=== PATIENT | male | born 2005 | race Caucasian/White ===

== ENCOUNTER 2024-01-18 09:00 | Outpatient (REF) | payer OTHER, SELFPAY ==
--- NOTE | ~2024-01-18 | US_ITS ---
EXAMINATION: US SCROTUM CLINICAL INFORMATION: Left testicular pain x1 week. Left testicular pain for one week, sports mild rugby injury. COMPARISON: None available. TECHNIQUE: A sonogram of the scrotum was performed assessing jj-scale appearance and color Doppler flow. Spectral Doppler analysis of the arterial and venous flow were performed in the testes bilaterally. FINDINGS: RIGHT: Right testicle measures 4.5 x 2.5 x 3.3 cm, volume 19.4 mL. No focal testicular parenchymal lesions are visualized. Spectral Doppler analysis of the arterial and venous flow is normal in the right testis. 1.0 x 0.7 x 1.2 cm cyst in the right epididymal head. No right hydrocele or varicocele is seen. Right epididymal Doppler flow is normal. LEFT: Left testicle measures 4.5 x 2.5 x 3.0 cm, volume 18.0 mL. No focal testicular parenchymal lesions are visualized. Spectral Doppler analysis of the arterial and venous flow is normal in the left testis. Left epididymal head is normal in size. No left varicocele is seen. Left epididymal Doppler flow is normal. Echogenic focus on the left, possibly representing an appendix with calcification. Moderate left fluid collection with low-level internal echoes may represent a reactive hydrocele versus spermatocele. US/US scrotum IMPRESSION: 1. Moderate left fluid collection with low-level internal echoes may represent a reactive hydrocele versus spermatocele. 2. Echogenic focus on the left, possibly representing an appendix with calcification. 3. A 1.2 cm cyst in the right epididymal head. 4. Urology consultation recommended to determine further management for this patient with history of injury.
== END 2024-01-18 09:01 | disposition home or self-care (01) ==
LOC: HO.UMASIMG 09:00
PROVIDERS: Visit Provider Emergency Medicine
DX: N50.819 Testicular pain, unspecified (principal)
CPT/HCPCS: 76870